=== PATIENT | male | born 1980 | race Two or more races ===

== ENCOUNTER 2016-07-20 11:31 | Emergency (ER) | payer OTHER ==
[~2016-07-20] VITALS: Ht 165.1 cm; Wt 70.3 kg
[~2016-07-20 11:31] MED LIST: HYDR-3326 PO
--- NOTE | 2016-07-20 11:42 | NUR ---
DR. TAYLOR IS AT THE BEDSIDE SPEAKING TO THE PT.
[2016-07-20] MEDS ORDERED: IV NS 0.9% 500 ML BAG IV ONE (12:00)
[2016-07-20] MEDS ORDERED: IV SET PRIMARY 1 EA INFUS.SET MC ONE (12:12)
[2016-07-20] MEDS ORDERED: IV NS 0.9% 500 ML IV ONE (12:12)
--- NOTE | 2016-07-20 12:14 | NUR ---
IV STARTED, BLOOD DRAWN AND SENT TO LAB. CXR IN PROGRESS AT THE BEDSIDE.
[2016-07-20 12:16] LABS: BASOPHILS % (AUTO) 0.8 % (0.0-2.0); EOSINOPHILS # (AUTO) 0.4 /CMM (0.0-0.7); EOSINOPHILS % (AUTO) 6.7 % (0.0-6.0); HEMATOCRIT 45 % (39-51); HEMOGLOBIN 14.9 g/dL (13.5-17.5); LYMPHOCYTES # (AUTO) 1.4 /CMM (0.8-4.8); LYMPHOCYTES % (AUTO) 23.8 % (20.0-44.0); MEAN CORPUSCULAR HEMOGLOBIN 30 PG (26.0-33.0); MEAN CORPUSCULAR HGB CONC 34 g/dl (31.0-36.0); MEAN CORPUSCULAR VOLUME 89 fL (80-96); MONOCYTES # (AUTO) 0.3 /CMM (0.1-1.30); MONOCYTES % (AUTO) 5.5 % (2.0-12.0); NEUTROPHILS # (AUTO) 3.8 /CMM (1.8-8.9); NEUTROPHILS % (AUTO) 63.2 % (43.0-81.0); PLATELET COUNT (AUTO) 286 /CMM (150-450); RDW COEFFICIENT OF VARIATION 12.2 (11.5-15.0); RED BLOOD CELL COUNT(AUTO) 5.02 MIL/uL (4.5-6.0); WHITE BLOOD COUNT (AUTO) 5.9 K/uL (4.3-11.0)
[2016-07-20 12:25] LABS: CALCIUM, SERUM 8.6 mg/dL (8.5-10.1); CARBON DIOXIDE 30 mmol/L (21-32); CHLORIDE 104 mmol/L (98-107); CREATININE 0.9 mg/dL (0.6-1.3); GFR 97 mL/min (>60); GLUCOSE 109 mg/dL (74-106); SODIUM SERUM 140 mmol/L (136-145); UREA NITROGEN, BLOOD 10 mg/dL (7-18)
[2016-07-20 12:30] LABS: INR 0.91 (0.87-1.13); PROTHROMBIN TIME 9.5 SECS (9.5-12.7)
[2016-07-20 12:38] LABS: TROPONIN I < 0.017 ng/mL (0.00-0.056)
[2016-07-20] MEDS ORDERED: CT SWABBABLE VALVE TRANS SET 1 EA INFUS.SET MC ONE (12:50)
[2016-07-20] MEDS ORDERED: IOHEXOL-350 100 ML VIAL IV ONE (12:50)
[2016-07-20] MEDS ORDERED: IV NS 0.9% 250 ML IV ONE (12:50)
--- NOTE | 2016-07-20 14:29 | NUR ---
IV removed. Catheter intact and site benign. Pressure and 4x4 applied to site. No bleeding noted.Patient discharged to home in stable condition. Written and verbal after care instructions given. Patient verbalizes understanding of instruction AND RX. VSS. PT AMBULATED OUT WITH A STEADY GAIT.
[2016-07-20 14:30] VITALS: BP 128/72
== END 2016-07-20 14:31 | disposition home or self-care (01) ==
LOC: ER 11:33
DX: R07.89 Other chest pain (principal)
CPT/HCPCS: 36415; 71010-TC; 80048-TC; 84484-TC; 85025-TC; 85730-TC; A4606; J7040; J7050; Q9967; Z7610

== ENCOUNTER 2020-08-09 13:37 | Emergency (ER) | payer OTHER ==
[~2020-08-09] VITALS: Ht 175.3 cm; Wt 72.6 kg
[~2020-08-09 13:37] MED LIST changes: -HYDR-3326 PO; +HYDR-3974 PO
[2020-08-09 13:40] VITALS: BP 113/76
--- NOTE | 2020-08-09 13:49 | NUR ---
VIVIANA BRANDON AT BEDSIDE FOR WOUND CLEANING.
--- NOTE | 2020-08-09 14:10 | NUR ---
SEEN AND EXAMINED BY .
[2020-08-09] MEDS ORDERED: LIDOCAINE /MPF 1% VIAL 5 ML VIAL ONE (14:33)
--- NOTE | 2020-08-09 14:50 | NUR ---
WOUND DRESSING DONE BY TECH ED/[employer].
--- NOTE | 2020-08-09 14:55 | NUR ---
Patient discharged to home in stable condition. Written and verbal after care instructions given. Patient verbalizes understanding of instruction.
== END 2020-08-09 14:56 | disposition home or self-care (01) ==
LOC: ER 13:44
DX: S61.011A Laceration without foreign body of right thumb without damage to nail, initial encounter (principal); S61.210A Laceration without foreign body of right index finger without damage to nail, initial encounter; X78.0XXA Intentional self-harm by sharp glass, initial encounter; Y93.E8 Activity, other personal hygiene; Y92.89 Other specified places as the place of occurrence of the external cause; Y99.0 Civilian activity done for income or pay
CPT/HCPCS: 12041; 99284; A6403 ×2; J3490

== ENCOUNTER 2020-08-20 16:06 | Emergency (ER) | payer OTHER ==
[~2020-08-20] VITALS: Ht 175.3 cm; Wt 72.6 kg
[2020-08-20 16:11] VITALS: BP 123/65
--- NOTE | 2020-08-20 16:22 | NUR ---
Patient discharged to home in stable condition. Written and verbal after care instructions given. Patient verbalizes understanding of instruction. Pt ambulatory with a steady gait
== END 2020-08-20 16:23 | disposition home or self-care (01) ==
LOC: ER 16:07
DX: S61.210D Laceration without foreign body of right index finger without damage to nail, subsequent encounter (principal); Z79.899 Other long term (current) drug therapy; X58.XXXD Exposure to other specified factors, subsequent encounter

== ENCOUNTER 2020-12-10 15:54 | Emergency (ER) | payer OTHER ==
[~2020-12-10] VITALS: Ht 175.3 cm; Wt 70.3 kg
[2020-12-10] MEDS ORDERED: IBUP-1955 PO (17:04)
[2020-12-10] MEDS ORDERED: HYDR-4303 PO (17:04)
[2020-12-10 17:26] VITALS: BP 116/71
== END 2020-12-10 17:26 | disposition home or self-care (01) ==
LOC: ER 15:58
DX: S82.61XA Displaced fracture of lateral malleolus of right fibula, initial encounter for closed fracture (principal); S92.151A Displaced avulsion fracture (chip fracture) of right talus, initial encounter for closed fracture; Z79.899 Other long term (current) drug therapy; W05.1XXA Fall from non-moving nonmotorized scooter, initial encounter; Y93.89 Activity, other specified; Y92.89 Other specified places as the place of occurrence of the external cause; Y99.8 Other external cause status
CPT/HCPCS: 73610-TC